=== PATIENT | male | born 1935 | race Caucasian/White ===

== ENCOUNTER → 2018-08-10 13:22 | Outpatient (CLI) | payer MEDICARE, SELFPAY ==
--- NOTE | 2018-08-10 13:25 | DI.RAD.S_ITS ---
PROCEDURE: XR SHOULDER LT MIN 2V INDICATIONS: acute left shoulder pain TECHNIQUE: 3 views of the shoulder were acquired. COMPARISON: None. FINDINGS: Bones: No fractures or dislocations. No suspicious bony lesions. There is moderate to severe acromioclavicular and glenohumeral joint degeneration. Visualized ribs appear intact. Soft tissues: No suspicious soft tissue calcifications. Calcifications over humeral head consistent with rotator cuff calcific tendinitis. IMPRESSION: 1. Moderate degenerative joint disease. 2. Rotator cuff calcific tendinitis. Dictated by: Rowan Clement M.D. on 08/10/2018 at 17:29 Approved by: Rowan Clement M.D. on 08/10/2018 at 17:30
== END ==
PROVIDERS: PCP Family Medicine; Visit Provider Physician Assistant
DX: M25.512 Pain in left shoulder (principal); M19.012 Primary osteoarthritis, left shoulder; M75.32 Calcific tendinitis of left shoulder
CPT/HCPCS: 73030

== ENCOUNTER 2018-08-26 11:15 | Outpatient (RCR) | payer MEDICARE, OTHER, SELFPAY ==
--- NOTE | 2018-08-24 16:28 | PT.OIE ---
Current Diagnoses Pain in left shoulder (08/24/18) Provider Visit Care Team Role Provider Type Jacob Veliz MD Primary Care Provider Physician Specialty: Family Practice Address: [address] [place] [address], [id number] Email: Pete Lange PA-C Attending Provider Advanced Interpretive Naturalist Specialty: Medical Address: [address] [place] [address], [id number] Email: Physical Therapy Initial Evaluation PT-OP-A Visit Information Start: 08/24/18 13:45 Freq: Status: Active Protocol: Document 08/24/18 13:45 AMB (Rec: 08/25/18 07:31 AMB [email or web address]) Out-Patient Physical Therapy Visit Information Visit Information Visit Type Initial Evaluation Visit Start Time 13:45 Visit Stop Time 14:30 Total Visit Minutes 45 Visit Number 1 PT-OP-B Current Condition Start: 08/24/18 13:45 Freq: Status: Active Protocol: Document 08/24/18 13:45 AMB (Rec: 08/25/18 16:15 AMB [email or web address]) Current Condition History of Current Condition Onset Date a few weeks ago Current Complaints mild anterior shoulder pain, can't lift arm up overhead History of Current Condition Renzo states that he has had difficulty moving his left arm for a few years but has not found it especially painful until a few weeks ago. Denies specific trauma. He started noticing L shoulder pain about 3pm and hadn't really been doing anything out of the ordinary, and the pain kept increasing so he went to the doctor. He noticed pain with palpation to the anterior shoulder and pain with movement of the shoulder joint , but the worst of the pain has now subsided. He is concerned about the pain returning since it came on so suddenly. Prior Treatments and Tests X-ray showed moderate- severe glenohumeral and AC joint degeneration and calcific tendinitis at rotator cuff Treatment Goals Patient/Caregiver Goals figure out what to do if this happens again Prior Functional Status Baseline Function- ADL's Independent Baseline Function- Mobility Independent Current Functional Impairments (Reported) Functional Limitations- ADL's Difficulty raising the arm above shoulder height for any activities with dressing, compensates in order to comb his hair. PT-OP-C Subjective Start: 08/24/18 13:45 Freq: Status: Active Protocol: Document 08/24/18 13:45 AMB (Rec: 08/25/18 07:31 AMB [email or web address]) Patient Questionnaires Quick Dash- Upper Extremity Quick Dash UE Score 16 Quick Dash UE Impairment 1 to 19% Impaired (Score 1-19) OP-PT Pain Assessment Location Left Anterior Shoulder Intensity 3 Scale Used Numeric (1 - 10) PT-OP-J Posture/Palpation/Skin Start: 08/24/18 13:45 Freq: Status: Active Protocol: Document 08/24/18 13:45 AMB (Rec: 08/25/18 16:03 AMB [email or web address]) Palpation Assessment Location One Palpation Location ant R shoulder Palpation Details mild tenderness, denies tenderness at biceps attachments and at supraspinatus attachment PT-OP-K Range of Motion Start: 08/24/18 13:45 Freq: Status: Active Protocol: Document 08/24/18 13:45 AMB (Rec: 08/25/18 16:03 AMB [email or web address]) Shoulder Goniometric Range of Motion Shoulder Right Active Flexion 150 Abduction 170 External Rotation at 0 degrees Abduction 60 Left Active Testing Position Sitting Flexion 95 Abduction 62 External Rotation at 0 degrees Abduction 60 PT-OP-M Strength Start: 08/24/18 13:45 Freq: Status: Active Protocol: Document 08/24/18 13:45 AMB (Rec: 08/25/18 16:03 AMB [email or web address]) Shoulder Strength Shoulder Manual Muscle Testing Left Flexion 3- Fair- Extension 5 Normal Abduction (C5) 3- Fair- External Rotation 4+ Good+ Internal Rotation 4+ Good+ PT-OP-Q Treatments Start: 08/24/18 13:45 Freq: Status: Active Protocol: Document 08/24/18 13:45 AMB (Rec: 08/25/18 16:03 AMB [email or web address]) Therapeutic Exercises Supine Exercises 1 Supine Exercise Name shoulder AAROM with cane Reps/Minutes 10 ea Comments flexion, abduction Sitting Exercises 1 Sitting Exercise Name sada flexion, abduction Reps/Minutes 3 min Standing Exercises 1 Standing Exercise Name isometrics Reps/Minutes 10x5 Comments ER, IR PT-OP-T Assessment and Plan Start: 08/24/18 13:45 Freq: Status: Active Protocol: Document 08/24/18 13:45 AMB (Rec: 08/25/18 16:15 AMB [email or web address]) Physical Therapy Assessment Rehab Potential Rehabilitation Potential Good Evaluation Complexity Number of Personal Factors/Comorbidities 1-2 Number of Body Systems Impaired 4 or More Clinical Presentation at Evaluation Stable Impairments Impairments Pain Posture ROM Strength Goals Two Impairment HEP Short Term Goal (STG) Renzo will be independent with a strengthening and ROM HEP. STG Duration 4 weeks One Impairment ROM Short Term Goal (STG) Renzo will increase his shoulder abduction AROM to 75 degrees. STG Duration 4 weeks Sight Effects Specialist Goal (LTG) Renzo will increase his shoulder AROM to 120 degrees of flexion. LTG Duration 6 weeks Assessment Summary Assessment Renzo attends physical therapy with chronic weakness in his left shoulder that has recently been more painful. His active range of motion is much more impaired than his passive range of motion in abduction and flexion. He will benefit from an exercise program to work on his range of motion and strength to get the shoulder as functional as possible, but given the chronic nature of the dysfunction that may be challenging. Physical Therapy Plan Frequency and Duration Frequency of Treatment 2x/Week Duration of Treatment 6 weeks Plan of Care Start Date 08/24/18 Plan of Care End Date 10/05/18 Therapeutic Interventions Therapeutic Interventions Home Exercise Program Joint Mobilizations Manual Therapy Neuromuscular Re-education Self-Care/Home Management Therapeutic Activities Therapeutic Exercises Modalities Cold Pack/Ice Massage Electric Stimulation Hot Packs Next Visit Focus/Plan Next Note Type Treatment Note Next Visit Plan Establish HEP for AAROM and strengthening as tolerated
--- NOTE | 2018-08-24 16:29 | PT.OPPOC ---
Current Diagnoses Pain in left shoulder (08/24/18) Provider Visit Care Team Role Provider Type Jacob Veliz MD Primary Care Provider Physician Specialty: Family Practice Address: [address] [place] [address], [id number] Email: Pete Lange PA-C Attending Provider Advanced Head Char Filter Tank Tender Specialty: Medical Address: [address] [place] [address], [id number] Email: Plan Of Care PT-OP-T Assessment and Plan Start: 08/24/18 13:45 Freq: Status: Active Protocol: Document 08/24/18 13:45 AMB (Rec: 08/25/18 16:15 AMB [email or web address]) Physical Therapy Assessment Rehab Potential Rehabilitation Potential Good Evaluation Complexity Number of Personal Factors/Comorbidities 1-2 Number of Body Systems Impaired 4 or More Clinical Presentation at Evaluation Stable Impairments Impairments Pain Posture ROM Strength Goals Two Impairment HEP Short Term Goal (STG) Renzo will be independent with a strengthening and ROM HEP. STG Duration 4 weeks One Impairment ROM Short Term Goal (STG) Renzo will increase his shoulder abduction AROM to 75 degrees. STG Duration 4 weeks Usp Goal (LTG) Renzo will increase his shoulder AROM to 120 degrees of flexion. LTG Duration 6 weeks Assessment Summary Assessment Renzo attends physical therapy with chronic weakness in his left shoulder that has recently been more painful. His active range of motion is much more impaired than his passive range of motion in abduction and flexion. He will benefit from an exercise program to work on his range of motion and strength to get the shoulder as functional as possible, but given the chronic nature of the dysfunction that may be challenging. Physical Therapy Plan Frequency and Duration Frequency of Treatment 2x/Week Duration of Treatment 6 weeks Plan of Care Start Date 08/24/18 Plan of Care End Date 10/05/18 Therapeutic Interventions Therapeutic Interventions Home Exercise Program Joint Mobilizations Manual Therapy Neuromuscular Re-education Self-Care/Home Management Therapeutic Activities Therapeutic Exercises Modalities Cold Pack/Ice Massage Electric Stimulation Hot Packs Next Visit Focus/Plan Next Note Type Treatment Note Next Visit Plan Establish HEP for AAROM and strengthening as tolerated Plan of Care Dates Plan of Care Start Date 08/24/18 Plan of Care End Date 10/05/18 Please Sign and Return: I have reviewed this Plan of Care and certify that the skilled therapy services above are required to meet the patient?s needs. Physician Signature Date Printed Name and Credentials Clinical Instructor Signature Printed Name and Credentials
--- NOTE | 2018-08-26 15:33 | PT.OTN ---
Current Diagnoses Pain in left shoulder (08/26/18) Physical Therapy Treatment Note PT-OP-A Visit Information Start: 08/24/18 13:45 Freq: Status: Active Protocol: Document 08/26/18 11:15 AMB (Rec: 08/26/18 11:23 AMB [id number]) Out-Patient Physical Therapy Visit Information Visit Information Visit Type Treatment Note Visit Start Time 11:15 Visit Stop Time 12:00 Total Visit Minutes 45 Visit Number 2 PT-OP-B Current Condition Start: 08/24/18 13:45 Freq: Status: Active Protocol: Document 08/24/18 13:45 AMB (Rec: 08/25/18 16:15 AMB [email or web address]) Current Condition History of Current Condition Onset Date a few weeks ago Current Complaints mild anterior shoulder pain, can't lift arm up overhead History of Current Condition Renzo states that he has had difficulty moving his left arm for a few years but has not found it especially painful until a few weeks ago. Denies specific trauma. He started noticing L shoulder pain about 3pm and hadn't really been doing anything out of the ordinary, and the pain kept increasing so he went to the doctor. He noticed pain with palpation to the anterior shoulder and pain with movement of the shoulder joint , but the worst of the pain has now subsided. He is concerned about the pain returning since it came on so suddenly. Prior Treatments and Tests X-ray showed moderate- severe glenohumeral and AC joint degeneration and calcific tendinitis at rotator cuff Treatment Goals Patient/Caregiver Goals figure out what to do if this happens again Prior Functional Status Baseline Function- ADL's Independent Baseline Function- Mobility Independent Current Functional Impairments (Reported) Functional Limitations- ADL's Difficulty raising the arm above shoulder height for any activities with dressing, compensates in order to comb his hair. PT-OP-C Subjective Start: 08/24/18 13:45 Freq: Status: Active Protocol: Document 08/26/18 11:15 AMB (Rec: 08/26/18 11:23 AMB [id number]) OP-PT Subjective Patient Comments Patient Comments The patient reports he could wash his armpit this morning which he has been unable to do since the pain got back a few weeks ago. PT-OP-J Posture/Palpation/Skin Start: 08/24/18 13:45 Freq: Status: Active Protocol: Document 08/24/18 13:45 AMB (Rec: 08/25/18 16:03 AMB [email or web address]) Palpation Assessment Location One Palpation Location ant R shoulder Palpation Details mild tenderness, denies tenderness at biceps attachments and at supraspinatus attachment PT-OP-K Range of Motion Start: 08/24/18 13:45 Freq: Status: Active Protocol: Document 08/26/18 11:15 AMB (Rec: 08/31/18 15:33 AMB [email or web address]) Shoulder Goniometric Range of Motion Shoulder Left Active Flexion 135 Abduction 105 PT-OP-M Strength Start: 08/24/18 13:45 Freq: Status: Active Protocol: Document 08/24/18 13:45 AMB (Rec: 08/25/18 16:03 AMB [email or web address]) Shoulder Strength Shoulder Manual Muscle Testing Left Flexion 3- Fair- Extension 5 Normal Abduction (C5) 3- Fair- External Rotation 4+ Good+ Internal Rotation 4+ Good+ PT-OP-Q Treatments Start: 08/24/18 13:45 Freq: Status: Active Protocol: Document 08/26/18 11:15 AMB (Rec: 08/31/18 15:32 AMB [email or web address]) Therapeutic Exercises Supine Exercises 1 Supine Exercise Name shoulder AAROM with cane Reps/Minutes 10 ea Comments flexion, abduction Sidelying Exercises 2 Sidelying Exercise Name ER AROM Reps/Minutes 10 1 Sidelying Exercise Name shoulder abd AROM Reps/Minutes 10 Sitting Exercises 1 Sitting Exercise Name sada flexion, abduction Reps/Minutes 3 min Standing Exercises 2 Standing Exercise Name rows Resistance #2 t band Reps/Minutes 10 PT-OP-T Assessment and Plan Start: 08/24/18 13:45 Freq: Status: Active Protocol: Document 08/26/18 11:15 AMB (Rec: 08/31/18 15:32 AMB [email or web address]) Physical Therapy Assessment Goals Two Impairment HEP Short Term Goal (STG) Renzo will be independent with a strengthening and ROM HEP. STG Duration MET One Impairment ROM Short Term Goal (STG) Renzo will increase his shoulder abduction AROM to 75 degrees. STG Duration MET [facility] Goal (LTG) Renzo will increase his shoulder AROM to 120 degrees of flexion. LTG Duration MET Assessment Summary Assessment Renzo's ROM has improved quite well. At this point it appears he had an exacerbation of a chronic rotator cuff weakness that caused his pain, but has now subsided. He has improved quite well with his range of motion with his HEP and his HEP was progressed at this visit. At this point he feels that he has improved past his baseline and is ready to be discharged. Physical Therapy Plan Discharge Physical Therapy Discharge Reasons Goals Met
== END 2018-09-10 14:50 | disposition home or self-care (01) ==
LOC: PHYS 11:15
PROVIDERS: PCP Family Medicine; Visit Provider Physician Assistant
DX: M25.512 Pain in left shoulder (principal)
CPT/HCPCS: 97110; 97161

== ENCOUNTER → 2022-04-08 13:51 | Outpatient (CLI) | payer MEDICARE, OTHER, SELFPAY ==
--- NOTE | 2022-04-08 | DI.MRI.S_ITS ---
PROCEDURE: MR STROKE Pre- and post-contrast brain MRI, non-contrast brain MR angiogram, pre- and postcontrast neck MR angiogram INDICATIONS: Transient cerebral ischemic attack/htn TECHNIQUE: Brain: Noncontrast axial T1 spin echo, axial T2 fast spin echo, sagittal and axial FLAIR, coronal T2 fast spin echo, axial gradient echo, axial diffusion and ADC through the brain. After the administration of contrast, axial 3D VIBE of the cranial vasculature and brain. Brain MRA: Non-contrast 3-D time of flight MR angiogram, with multiple iarejkd-gfccsrcgm-ywpmyngapk (MIP) reformats performed. Neck MRA: Axial and sagittal TruFISP through the neck. Coronal dynamic MR angiogram during administration of contrast in the arterial and venous phases, with 3-dimenstional umlvjsr-gfpvrcchh-cwgvyhnpnr (MIP) reformats constructed from subtraction images. COMPARISON: None. FINDINGS: Image quality: Excellent. BRAIN: CSF spaces: Ventricles are normal in size and shape. Basal cisterns are patent. No extra-axial fluid collections. Brain: No intracranial bleeds or mass effects. Clark-white matter interface is normal. Diffusion weighted images show no acute ischemic insults. Brainstem appears normal. Normal intravascular flow voids are present. No abnormal intracranial enhancement. Note is made of age-appropriate brain parenchymal volume loss and chronic small vessel ischemic changes. Skull and face: Calvarial marrow signal is normal. Orbits appear normal. Note is made of bilateral lens replacements. Sinuses: Sinuses and mastoids are clear. BRAIN MR ANGIOGRAM: Anterior circulation: Intracranial internal carotid arteries are normal in size and enhancement. The flow within the paired anterior cerebral arteries is normal and symmetric. On these images, both M1 branches appear narrowed by at least 50%. The flow within the distal middle cerebral artery territories appear within normal limits, however. The anterior communicating artery is seen. No stenoses, occlusions, or aneurysms. Posterior circulation: The visualized portions of the vertebral arteries demonstrate normal caliber, and join to form a normal appearing basilar artery. The flow within the posterior cerebral arteries is normal and symmetric. No stenoses, occlusions, or aneurysms. NECK MR ANGIOGRAM: Carotids: Great vessels demonstrate a conventional anatomy as they arise from the aortic arch. The origins of the common carotid arteries appear patent. The calibers and courses of both common carotid arteries are normal. The bifurcation regions demonstrate atherosclerotic irregularity. There is approximately 50% narrowing seen involving the origin of the left internal carotid artery. Posterior circulation: The origins of the vertebral arteries appear patent. More superior portions of both vertebral arteries demonstrate normal course and caliber, and join to form a normal appearing basilar artery. Miscellaneous: Subclavian arteries appear patent. Pre-contrast images through the neck show no soft tissue abnormalities. IMPRESSION: BRAIN MRI: No findings of acute or subacute infarction can be seen. No masses or abnormal enhancement can be seen. BRAIN MR ANGIOGRAM: Apparent at least 50% stenosis seen involving both M1 segments. This is felt most likely to be artifactual. (The flow within the distal middle cerebral artery territories appears within normal limits.) If clinically appropriate, a follow-up head CT angiogram could be considered for further evaluation/confirmation. NECK MR ANGIOGRAM: Approximately 50% narrowing seen involving the origin of left internal carotid artery. No significant vertebral artery abnormality is seen. Dictated by: Hossein Steel M.D. on 04/08/2022 at 15:11 Approved by: Hossein Steel M.D. on 04/08/2022 at 15:14
== END ==
PROVIDERS: PCP Family Medicine; Referring Provider Family Medicine; Visit Provider Family Medicine
DX: G45.9 Transient cerebral ischemic attack, unspecified (principal); I65.22 Occlusion and stenosis of left carotid artery; I10 Essential (primary) hypertension
CPT/HCPCS: 70548; 70553; A9579

== ENCOUNTER → 2022-04-25 13:40 | Outpatient (CLI) | payer MEDICARE, OTHER, SELFPAY ==
--- NOTE | 2022-04-25 | DI.ECHO.S_ITS ---
[facility] +---------+ : : [address] [place] : : : : [id number] : : : : Phone: [phone]+ Echocardiogram Report + + :Name: DARRIN CHENCHO Lilibeth Study Date: 04/25/2022 Height: 72 in : :[facility] ReadingLocation: Weight: 155 lb : : Gender: Male BSA: 1.9 m2 : :: 1935 Age: 87 yrs BP: 136/73 mmHg: :Reason For Study: Essential hypertension : :Ordering Physician: AUDIE, : :CHENCHO Cuevas Performed By: Mitzi Salas : :Referring: CHENCHO BRONSON : + + Interpretation Summary Normal sinus rhythm. Normal LV size and wall thickness; normal wall motion and LV systolic function. EF is 65-70%.. Stage II diastolic dysfunction. There are normal chamber sizes. Aortic valve leaflets are moderately thickened and calcified with mild associated aortic regurgitation. Mildly dilated ascending aorta. No prior study available for comparison. Procedure: A two-dimensional transthoracic echocardiogram with color flow and Doppler was performed. The study quality was technically good. There is no prior echocardiogram noted for this patient. The patient was in sinus bradycardia with heart rates between 50-55 bpm during the exam. Left Ventricle: The left ventricle is normal in size. There is mild asymmetric left ventricular hypertrophy. The ejection fraction is estimated to be 65-70%. Diastolic parameters suggest a pseudonormalization pattern, consistent with probable elevated filling pressures. Right Ventricle: The right ventricle is normal in size and function. Atria: The left atrial size is normal. Right atrial size is normal. There is no Doppler evidence for an interatrial shunt. Mitral Valve: The mitral valve leaflets appear mildly thickened, but open well. There is mild mitral annular calcification. There is mild to moderate mitral regurgitation. Aortic Valve: The aortic valve is trileaflet. The aortic valve opens well. The aortic valve is mildly calcified. There is trace aortic regurgitation. Tricuspid Valve: The tricuspid valve is normal in structure and function. There is mild tricuspid regurgitation. The right ventricular systolic pressure is estimated to be at least 27 mmHg based on an estimated right atrial pressure of 3 mm Hg. Pulmonic Valve: The pulmonic valve leaflets are thin and pliable; valve motion is normal. There is a trace or physiologic amount of pulmonic regurgitation. Great Vessels: The aortic root is borderline dilated. The ascending aorta is mildly enlarged. The pulmonary artery is normal size. The IVC is of normal diameter and collapses greater than 50% with a sniff. This suggests a low right atrial pressure of 3 mm Hg. Pericardium/ Pleura There is no pericardial effusion. There is no pleural effusion. MMode/2D Measurements & Calculations LVIDd: 4.0 cm LVOT diam: 1.9 cm LVIDs: 2.5 cm Ao root diam: 3.7 cm FS: 37.5 % asc Aorta Diam: 4.0 cm EPSS: 0.30 cm Ao Arch Diam (Prox Trans): 3.0 cm IVSd: 1.2 cm LVPWd: 0.90 cm LV agosto. diameter/BSA (cm/m^2): 2.1 LV sys. diameter/BSA (cm/m^2): 1.3 LA dimension: 3.3 cm RA long axis: 4.3 cm LA A2 area: 17.1 cm2 RA area: 11.8 cm2 LA A4 area: 15.0 cm2 RA vol: 27.5 ml LA length (vol): 4.6 cm RA : 14.4 ml/m2 LA vol: 47.6 ml IVC diam: 1.5 cm LA vol index: 24.9 ml/m2 RVD1 (basal): 3.1 cm LVLs ap4: 6.2 cm LVLd ap2: 7.0 cm TAPSE_phl: 2.4 cm LVLs ap2: 5.5 cm Doppler Measurements & Calculations Ao V2 max: 175.0 cm/sec LVOT Max Ralf: 143.0 cm/sec Ao V2 mean: 133.0 cm/sec LV V1 max P.2 mmHg Ao max P.0 mmHg LV V1 VTI: 33.9 cm Ao mean P.0 mmHg CHRISTINA(I,D): 2.2 cm2 Ao V2 VTI: 43.4 cm CHRITSINA(V,D): 2.3 cm2 sev ratio: 0.78 CHRISTINA indexed to BSA (cm^2/m^2): 1.2 MV E max ralf: 107.0 cm/sec TR max ralf: 245.0 cm/sec MV A max ralf: 96.8 cm/sec TR max P.0 mmHg MV E/A: 1.1 PA V2 max: 85.1 cm/sec Med Peak E' Ralf: 7.5 cm/sec PA V2 mean: 61.6 cm/sec E/E' med: 14.4 PA mean P.0 mmHg Lat Peak E' Ralf: 7.4 cm/sec E/E' lat: 14.6 E/e' average: 14.5 MV dec time: 0.26 sec MVA(VTI): 2.6 cm2 MV V2 mean: 50.0 cm/sec SV(LVOT): 96.1 ml MV mean P.0 mmHg MV V2 VTI: 37.6 cm AV VR_phl: 0.82 MV P1/2t-pr_phl: 76.0 msec CHRISTINA(VTI)/BSA_phl: 1.2 Electronically signed by: Christie Wynn M.D. on Reading Physician:04/26/2022 02:04 AM
== END ==
PROVIDERS: PCP Family Medicine; Referring Provider Family Medicine; Visit Provider Family Medicine
DX: I08.1 Rheumatic disorders of both mitral and tricuspid valves (principal); I77.89 Other specified disorders of arteries and arterioles; I10 Essential (primary) hypertension
CPT/HCPCS: 93306

== ENCOUNTER → 2022-07-09 12:13 | Outpatient (CLI) | payer MEDICARE, OTHER, SELFPAY ==
--- NOTE | 2022-07-09 | DI.RAD.S_ITS ---
PROCEDURE: XR CHEST 2V INDICATIONS: COVID 19, COUGH TECHNIQUE: 2 views of the chest were acquired. COMPARISON: [facility], , CHEST 2 VIEW, 10/19/2012, 9:17. FINDINGS: Surgical changes and devices: None. Lungs and pleura: Subtle increased opacity in bilateral lower lung koch are seen more prominent on the right side. No pleural effusions or pneumothorax. Mediastinum: Mediastinal contours are normal. Heart size is normal. Bones and chest wall: No suspicious bony abnormalities. Soft tissues appear unremarkable. IMPRESSION: Finding may represent early infiltrates in bilateral lower lung koch. No pleural effusion or pneumothorax. Dictated by: Salomon Solis M.D. on 07/09/2022 at 14:41 Approved by: Salomon Solis M.D. on 07/09/2022 at 14:49
== END ==
PROVIDERS: PCP Family Medicine; Referring Provider Family Medicine; Visit Provider Family Medicine
DX: U07.1 COVID-19 (principal)
CPT/HCPCS: 71046